=== PATIENT | male | born 1990 | race Caucasian/White ===

== ENCOUNTER 2020-02-05 17:33 | Inpatient (IN) | payer OTHER ==
[~2020-02-05] VITALS: Ht 160 cm; Wt 77.8 kg
--- NOTE | 2020-02-05 17:51 | NUR ---
PATIENT MEETS [facility]. CINA=[id number]. PATIENT WANTS TO FOLLOW UP WITH [facility] IN [place] FOR OUTPATIENT TREATMENT. MARÍA BARRON B.A. MEDICAID BILLING SPECIALIST
[2020-02-05 18:05] VITALS: BP 122/82
--- NOTE | 2020-02-05 18:05 | NUR ---
Time: 1804 A 29 year old FEMALE admitted to under services of JUDIE HELLER DO, Pt. arrived via stretcher from ER. Chief complaint: HERE FOR [facility]. HEROIN ABUSE STATES USES 1/2-1 GRAM DAILY SNORTING. ALSO ADMITS TO USING THC SMOKING DAILY KAZ DUMONT
--- NOTE | 2020-02-05 18:14 | NUR ---
Nursing supervisor broadloom notified that camera was needed for wound photo.
--- NOTE | 2020-02-05 18:20 | NUR ---
Dr. Aleman notifed that pt was in room.
--- NOTE | 2020-02-05 18:30 | NUR ---
Wound photos taken by Aidan Adorno.
--- NOTE | 2020-02-05 19:45 | NUR ---
PT IS SITTING UP IN BED AT THIS TIME. HE APPEARS RESTLESS AND STATES THAT HE IS HAVING A HARD TIME SITTING STILL WELL NEEDING THE NICOTINE INHALER. WILL CONTACT RESIDENT FOR ORDERS. BED IS LOW, CALL LIGHT WITHIN REACH. WILL CONTINUE TO MONITOR.
--- NOTE | 2020-02-05 19:50 | NUR ---
DR JANE CONTACTED REGARDING PT'S REQUEST FOR NICOTINE INHALER. ORDERS RECIEVED.
[2020-02-05 20:00] VITALS: BP 118/77
--- NOTE | 2020-02-05 20:29 | NUR ---
PT MEDICATED WITH PRN REQUIP FOR C/O RESTLESS LEG. WILL MONITOR FOR EFFECTIVENESS.
[2020-02-06] VITALS: BP 126/94
[2020-02-06 08:00] VITALS: BP 126/61
--- NOTE | 2020-02-06 08:33 | NUR ---
Dr. Aleman called and states that the labs ordered for pt were cancelled. Asked if pt refused or why were they cancelled. I spoke with Christel in the lab, who states pt refused and Lilly was notified. Notified Dr. Jacobo of this.
--- NOTE | 2020-02-06 10:03 | NUR ---
[place] STAFF IN TO SEE PATIENT. PATIENT IS STILL WANTING TO FOLLOW UP WITH [facility] IN [place] FOR OUTPATIENT TREATMENT. MARÍA BARRON B.A. HOPPER FEEDER
[2020-02-06 12:00] VITALS: BP 122/60
--- NOTE | 2020-02-06 12:08 | NUR ---
Nutritional Support Services Note: Pt with Dx of opiate withdrawal. Wounds/abrasions noted. Appetite is good for meals. Ht.5'3 Wt.172#. Continue to encourage good po intake of meals. Will provide pt with a night snack. No other nutrition intervention needed at this time. Will follow as needed. Hailey Briceño Rdn Ld
[2020-02-06 16:34] VITALS: BP 121/83
--- NOTE | 2020-02-06 20:00 | NUR ---
AMBULATING HALLWAY WITH MASK ON. NO DISTRESS NOTED. NO VOICED COMPLAINTS
--- NOTE | 2020-02-06 20:22 | NUR ---
24 HR chart check completed.
--- NOTE | 2020-02-06 20:56 | NUR ---
Patient displaying withdrawal symptoms, including: irritability, anxiousness, restlessness and agitation. Scheduled/PRN medications provided, SEE EMAR. Will continue to monitor medication effectiveness.
--- NOTE | 2020-02-06 21:30 | NUR ---
Patient resting. Responding to scheduled medications with fewer complaints of pain and anxiety.
[2020-02-07] VITALS: BP 109/64
--- NOTE | 2020-02-07 05:30 | NUR ---
Patient displaying withdrawal symptoms, including: irritability, anxiousness, restlessness and agitation. Scheduled medications provided, SEE EMAR. Will continue to monitor medication effectiveness.
--- NOTE | 2020-02-07 06:00 | NUR ---
Patient resting. Responding to scheduled medications with fewer complaints of pain and anxiety.
[2020-02-07 08:00] VITALS: BP 121/70
--- NOTE | 2020-02-07 11:12 | NUR ---
[facility] STAFF SET UP APPOINTMENT WITH [facility] IN [place] FOR January AT 9:30AM. MARÍA BARRON B.A. CORE DRILL OPERATOR
[2020-02-07 20:00] VITALS: BP 113/72
--- NOTE | 2020-02-07 20:45 | NUR ---
PT SITTING UP AT SIDE OF BED. RESP-EASY AND REGULAR. C/O CONSTIPATION, MEDICATED WITH MILK OF MAGNESIA. ALSO C/O MUSCLE ACHES, MEDICATED WITH ROBAXIN PO PER PRN ORDER, SEE EMAR. CALL LIGHT IN REACH.
--- NOTE | 2020-02-07 20:48 | NUR ---
PT REQUESTING NICOTROL CARTRIDGE, SEE EMAR.
--- NOTE | 2020-02-07 21:40 | NUR ---
Patient resting. Responding to scheduled medications with fewer complaints of pain and anxiety. CALL LIGHT IN REACH.
[2020-02-08] VITALS: BP 131/75
--- NOTE | 2020-02-08 00:06 | NUR ---
PT AMBULATORY IN THE ROOM. TOLERATED ROUTINE SUBUTEX FOR WITHDRAWAL. PT ANXIOUS. MEDICATED WITH VISTARIL PO PER PRN ORDER, SEE EMAR. CALL LIGHT IN REACH.
--- NOTE | 2020-02-08 01:00 | NUR ---
Patient resting. Responding to scheduled medications with fewer complaints of pain and anxiety. CALL LIGHT IN [facility].
--- NOTE | 2020-02-08 06:00 | NUR ---
RESTING IN BED. RESP-EASY AND REGULAR. TOLERATED ROUTINE MED WITH NO PROBLEM. CALL LIGHT IN REACH.
[2020-02-08 08:00] VITALS: BP 91/55
--- NOTE | 2020-02-08 08:00 | NUR ---
Patient resting quietly with no c/o discomfort. Respirations easy and regular. Vital signs stable. No overt distress. JOHN LARES R
[2020-02-08] MEDS ORDERED: ATARAX,VISTARIL50 MG PO (11:13)
[2020-02-08] MEDS ORDERED: ROPINIROLE HYD0.5 MG PO (11:13)
--- NOTE | 2020-02-08 12:26 | NUR ---
PT REFUSES DISCHARGE WOUND PHOTOS.
--- NOTE | 2020-02-08 13:47 | NUR ---
Discharge instructions reviewed with patient/family. Patient receptive and verbalizes understanding. Follow-up care arranged. Written instructions given to patient/family. JOHN LARES
== END 2020-02-08 13:47 | disposition home or self-care (01) | DRG 773 ==
LOC: 4E 17:33
PROVIDERS: ADMIT Internal Medicine; ATTEND Internal Medicine
DX: F11.23 Opioid dependence with withdrawal (principal); F14.10 Cocaine abuse, uncomplicated; F31.9 Bipolar disorder, unspecified; F12.10 Cannabis abuse, uncomplicated; F17.210 Nicotine dependence, cigarettes, uncomplicated; F41.9 Anxiety disorder, unspecified; F11.282 Opioid dependence with opioid-induced sleep disorder; G25.81 Restless legs syndrome; H53.8 Other visual disturbances; Z82.5 Family history of asthma and other chronic lower respiratory diseases

== ENCOUNTER 2021-02-24 00:59 | Emergency (ER) | payer OTHER ==
[~2021-02-24 00:59] MED LIST: ATARAX,VISTARIL50 MG PO; ROPINIROLE HYD0.5 MG PO
[2021-02-24 02:31] LABS: URINE AMPHETAMINES < 1000 (1000ng/ml); URINE BARBITURATES < 200 (200ng/ml); URINE BENZODIAZEPINES < 200 (200ng/ml); URINE CANNABINOIDS (THC) < 50 (50ng/ml); URINE COCAINE < 300 (300ng/ml); URINE METHADONE < 300 (300ng/ml); URINE OPIATES < 300 (300ng/ml)
[2021-02-24 02:32] LABS: URINE PHENCYCLIDINE < 25 (25ng/ml)
== END 2021-02-24 02:53 | disposition home or self-care (01) ==
LOC: ED 00:59
PROVIDERS: Internal Medicine
DX: Z00.00 Encounter for general adult medical examination without abnormal findings (principal); F17.200 Nicotine dependence, unspecified, uncomplicated

== ENCOUNTER 2021-09-04 14:30 | Emergency (ER) | payer OTHER ==
[~2021-09-04] VITALS: Ht 162.5 cm; Wt 79.4 kg
[2021-09-04] MEDS ORDERED: BUPRENORPHINE-1 EAC2 SL (15:06)
== END 2021-09-04 16:31 | disposition home or self-care (01) ==
LOC: ED 14:30
DX: F11.21 Opioid dependence, in remission (principal); F17.210 Nicotine dependence, cigarettes, uncomplicated; Z79.899 Other long term (current) drug therapy; Z98.890 Other specified postprocedural states

== ENCOUNTER 2021-09-08 10:12 | Emergency (ER) | payer OTHER ==
[~2021-09-08 10:12] MED LIST changes: +BUPRENORPHINE-1 EAC2 SL
== END 2021-09-08 10:40 | disposition home or self-care (01) ==
LOC: ED 10:12
DX: F11.90 Opioid use, unspecified, uncomplicated (principal)

== ENCOUNTER 2021-11-08 14:18 | Inpatient (IN) | payer OTHER ==
[~2021-11-08] VITALS: Wt 83.9 kg
[2021-11-08 14:37] VITALS: BP 105/69
[2021-11-08 15:45] LABS: BASO # 0.1 10*3/uL (0.0-0.1); BASO % 0.5 % (0.0-1.0); EOS # 0.2 10*3/uL (0.0-0.4); EOS % 1.6 % (1.0-4.0); HEMATOCRIT 39.9 % (42.0-52.0); LYMPH # 1.6 10*3/uL (1.3-4.4); LYMPH % 14.8 % (27.0-41.0); MEAN CELL VOLUME 92.4 fl (80.0-94.0); MEAN CORPUSCULAR HGB 31.5 pg (27.0-31.0); MEAN CORPUSCULAR HGB CONC 34.1 g/dl (33.0-37.0); MEAN PLATELET VOLUME 10.2 fl (9.6-12.3); MONO # 0.8 10*3/uL (0.1-1.0); MONO % 7.2 % (3.0-9.0); NEUT # 7.9 10*3/uL (2.3-7.9); NEUT % 75.5 % (47.0-73.0); PLATELET COUNT AUTOMATED 211 10*3/uL (130-400); RED BLOOD COUNT 4.32 10*6/uL (4.50-5.90); RED CELL DISTRI WIDTH 14.9 % (0-14.5); WHITE BLOOD COUNT 10.5 10*3/uL (4.8-10.8)
[2021-11-08 15:56] LABS: ACT PARTIAL THROMBO TIME 24.2 SECONDS (20.0-32.1); INTERNATIONAL NORM RATIO 0.9 (2.0-3.5)
[2021-11-08 16:01] LABS: ALKALINE PHOSPHATASE 88 U/L (45-117); BUN 13 mg/dl (7-24); CHLORIDE 108 mmol/L (98-107); CREATININE 0.73 mg/dL (0.70-1.30); LIPASE 71 U/L (73-393); SGOT/AST 13 IU/L (3-35); SGPT/ALT 21 U/L (12-78); SODIUM 138 mmol/L (136-145); TOTAL PROTEIN 7.1 gm/dL (6.4-8.2)
[2021-11-08 16:02] LABS: ETHYL ALCOHOL < 3.0 mg/dl (<3)
[2021-11-08 18:34] VITALS: BP 112/46
== END 2021-11-08 22:35 | disposition left against medical advice (07) | DRG 770 ==
LOC: ED 14:18 → EDHOLD 16:48
PROVIDERS: Emergency Medicine; ADMIT Internal Medicine; ATTEND Internal Medicine
DX: F11.23 Opioid dependence with withdrawal (principal); R73.9 Hyperglycemia, unspecified; D64.9 Anemia, unspecified; F12.10 Cannabis abuse, uncomplicated; F17.219 Nicotine dependence, cigarettes, with unspecified nicotine-induced disorders; G47.00 Insomnia, unspecified; Z83.6 Family history of other diseases of the respiratory system; Z83.3 Family history of diabetes mellitus; Z80.9 Family history of malignant neoplasm, unspecified; Z79.899 Other long term (current) drug therapy

== ENCOUNTER 2021-11-13 15:14 | Emergency (ER) | payer OTHER ==
[~2021-11-13] VITALS: Ht 162.5 cm; Wt 83.9 kg
[2021-11-13 16:03] LABS: BILIRUBIN Negative (Negative); BLOOD Negative (Negative); CLARITY Clear (Clear); COLOR Yellow (Yellow); GLUCOSE Negative (Negative); KETONE Trace (Negative); LEUKO ESTERASE Negative (Negative); NITRITE Negative (Negative)
[2021-11-13 16:12] LABS: URINE AMPHETAMINES < 1000 (1000ng/ml); URINE BARBITURATES < 200 (200ng/ml); URINE BENZODIAZEPINES > 200 (200ng/ml); URINE CANNABINOIDS (THC) > 50 (50ng/ml); URINE COCAINE < 300 (300ng/ml); URINE METHADONE < 300 (300ng/ml); URINE OPIATES < 300 (300ng/ml)
[2021-11-13 16:14] LABS: URINE PHENCYCLIDINE < 25 (25ng/ml)
[2021-11-13 16:16] LABS: BASO % 0.4 % (0.0-1.0); EOS # 0.2 10*3/uL (0.0-0.4); EOS % 2.6 % (1.0-4.0); LYMPH # 1.5 10*3/uL (1.3-4.4); LYMPH % 16.9 % (27.0-41.0); MEAN CELL VOLUME 90.9 fl (80.0-94.0); MEAN CORPUSCULAR HGB 31.1 pg (27.0-31.0); MEAN CORPUSCULAR HGB CONC 34.2 g/dl (33.0-37.0); MEAN PLATELET VOLUME 9.7 fl (9.6-12.3); MONO # 0.7 10*3/uL (0.1-1.0); MONO % 7.6 % (3.0-9.0); NEUT # 6.5 10*3/uL (2.3-7.9); NEUT % 72.1 % (47.0-73.0); PLATELET COUNT AUTOMATED 214 10*3/uL (130-400); RED BLOOD COUNT 4.95 10*6/uL (4.50-5.90); RED CELL DISTRI WIDTH 14.1 % (0-14.5)
[2021-11-13 16:20] LABS: EPITHELIAL CELLS 0-2; MUCOUS 2+; WBC 0-2 wbc/hpf (0-5)
[2021-11-13 16:31] LABS: ALKALINE PHOSPHATASE 93 U/L (45-117); BUN 5 mg/dl (7-24); CHLORIDE 109 mmol/L (98-107); CREATININE 0.73 mg/dL (0.70-1.30); POTASSIUM 3.7 mmol/L (3.5-5.1); SGOT/AST 14 IU/L (3-35); SGPT/ALT 17 U/L (12-78); SODIUM 137 mmol/L (136-145); TOTAL PROTEIN 7.7 gm/dL (6.4-8.2)
[2021-11-13 16:32] LABS: ACETAMINOPHEN (TYLENOL) < 5.0 ug/ml (10-30)
[2021-11-13 16:45] LABS: ETHYL ALCOHOL < 3.0 mg/dl (<3)
== END 2021-11-13 16:40 | disposition left against medical advice (07) ==
LOC: ED 15:14
PROVIDERS: Emergency Medicine
DX: F11.23 Opioid dependence with withdrawal (principal); Z87.891 Personal history of nicotine dependence; Z98.890 Other specified postprocedural states

== ENCOUNTER 2022-01-21 19:20 | Emergency (ER) | payer OTHER ==
[~2022-01-21] VITALS: Ht 160 cm; Wt 83.9 kg
[2022-01-21] MEDS ORDERED: ESCITALOPRAM OX10 MG PO (20:05)
[2022-01-21] MEDS ORDERED: ARIPIPRAZOLE10 MG PO (20:06)
[2022-01-21] MEDS ORDERED: LEXAPRO10 MG PO (20:10)
[2022-01-21] MEDS ORDERED: ABILIFY10 MG PO (20:10)
== END 2022-01-21 20:59 | disposition home or self-care (01) ==
LOC: ED 19:20
DX: F41.9 Anxiety disorder, unspecified (principal); Z76.0 Encounter for issue of repeat prescription; Z98.890 Other specified postprocedural states; Z87.891 Personal history of nicotine dependence

== ENCOUNTER 2022-09-15 17:19 | Inpatient (IN) | payer OTHER ==
[~2022-09-15] VITALS: Ht 160 cm; Wt 84.0 kg
[~2022-09-15 17:19] MED LIST changes: +ABILIFY10 MG PO; +ARIPIPRAZOLE10 MG PO; +ESCITALOPRAM OX10 MG PO; +LEXAPRO10 MG PO
[2022-09-15 18:01] VITALS: BP 136/72
[2022-09-15 18:26] LABS: BASO # 0.1 10*3/uL (0.0-0.1); BASO % 0.8 % (0.0-1.0); EOS # 0.4 10*3/uL (0.0-0.4); EOS % 5.5 % (1.0-4.0); LYMPH # 2.7 10*3/uL (1.3-4.4); LYMPH % 35.2 % (27.0-41.0); MEAN CELL VOLUME 89.2 fl (80.0-94.0); MEAN CORPUSCULAR HGB 31.5 pg (27.0-31.0); MEAN CORPUSCULAR HGB CONC 35.3 g/dl (33.0-37.0); MONO # 0.6 10*3/uL (0.1-1.0); MONO % 7.5 % (3.0-9.0); NEUT # 3.9 10*3/uL (2.3-7.9); NEUT % 50.7 % (47.0-73.0); PLATELET COUNT AUTOMATED 218 10*3/uL (130-400); RED BLOOD COUNT 4.82 10*6/uL (4.50-5.90); RED CELL DISTRI WIDTH 13.3 % (0-14.5); WHITE BLOOD COUNT 7.6 10*3/uL (4.8-10.8)
[2022-09-15] MEDS ORDERED: BUSPIRONE15 MG PO (18:39)
[2022-09-15] MEDS ORDERED: ABILIFY15 MG PO (18:39)
[2022-09-15] MEDS ORDERED: VISTARIL25 MG PO (18:40)
[2022-09-15] MEDS ORDERED: SEPTDS PO (18:40)
[2022-09-15 19:00] LABS: ALKALINE PHOSPHATASE 79 U/L (46-116); BUN 11 mg/dl (9-23); CHLORIDE 101 mmol/L (98-107); POTASSIUM 3.7 mmol/L (3.4-5.1); SGPT/ALT 34 U/L (10-49); TOTAL PROTEIN 7.6 gm/dL (6.0-8.0)
[2022-09-15 19:07] LABS: ETHYL ALCOHOL < 3.0 mg/dl (<3)
[2022-09-15 20:54] VITALS: BP 115/62
[2022-09-15 21:31] LABS: URINE AMPHETAMINES Positive (1000ng/ml); URINE BARBITURATES Negative (200ng/ml); URINE BENZODIAZEPINES Positive (200ng/ml); URINE CANNABINOIDS (THC) Positive (50ng/ml); URINE COCAINE Negative (300ng/ml); URINE METHADONE Negative (300ng/ml); URINE OPIATES Positive (300ng/ml); URINE PHENCYCLIDINE Negative (25ng/ml)
[2022-09-15 22:26] VITALS: BP 99/50
[2022-09-16] VITALS (7 sets, daily range): BP systolic 78–128; BP diastolic 30–70
[2022-09-16 03:51] LABS: BASO # 0.1 10*3/uL (0.0-0.1); BASO % 0.7 % (0.0-1.0); EOS # 0.4 10*3/uL (0.0-0.4); HEMATOCRIT 39.1 % (42.0-52.0); LYMPH # 2.7 10*3/uL (1.3-4.4); LYMPH % 40.7 % (27.0-41.0); MEAN CELL VOLUME 89.9 fl (80.0-94.0); MEAN CORPUSCULAR HGB 30.8 pg (27.0-31.0); MEAN CORPUSCULAR HGB CONC 34.3 g/dl (33.0-37.0); MEAN PLATELET VOLUME 9.8 fl (9.6-12.3); MONO # 0.8 10*3/uL (0.1-1.0); MONO % 11.4 % (3.0-9.0); NEUT # 2.7 10*3/uL (2.3-7.9); NEUT % 40.8 % (47.0-73.0); PLATELET COUNT AUTOMATED 190 10*3/uL (130-400); RED BLOOD COUNT 4.35 10*6/uL (4.50-5.90); RED CELL DISTRI WIDTH 13.4 % (0-14.5); WHITE BLOOD COUNT 6.7 10*3/uL (4.8-10.8)
[2022-09-16 04:04] LABS: ACT PARTIAL THROMBO TIME 26.7 SECONDS (20.0-32.1)
[2022-09-16 06:32] LABS: ALKALINE PHOSPHATASE 65 U/L (46-116); BUN 15 mg/dl (9-23); CHLORIDE 106 mmol/L (98-107); CHOLESTEROL 128 mg/dL (<200); FREE T4 1.21 ng/dl (0.89-1.76); LDL CHOLESTEROL 69 mg/dL (9-159); POTASSIUM 4.4 mmol/L (3.4-5.1); SGPT/ALT 28 U/L (10-49); THYROID STIM HORMONE (HS) 1.159 uIU/ml (0.550-4.780); TOTAL PROTEIN 6.4 gm/dL (6.0-8.0); TRIGLYCERIDES 56 mg/dl (<150)
[2022-09-17] VITALS: BP 98/50
[2022-09-17 08:00] VITALS: BP 110/55
== END 2022-09-17 09:21 | disposition left against medical advice (07) | DRG 770 ==
LOC: ED 17:19 → EDHOLD 18:41 → 4E 09-16 13:46
PROVIDERS: Emergency Medicine; Student in an Organized Health Care Education/Training Program; ADMIT Family Medicine; ATTEND Family Medicine
DX: F11.23 Opioid dependence with withdrawal (principal); F41.9 Anxiety disorder, unspecified; R74.01 Elevation of levels of liver transaminase levels; F15.10 Other stimulant abuse, uncomplicated; F13.10 Sedative, hypnotic or anxiolytic abuse, uncomplicated; K59.00 Constipation, unspecified; F31.81 Bipolar II disorder; Z53.29 Procedure and treatment not carried out because of patient's decision for other reasons; F17.210 Nicotine dependence, cigarettes, uncomplicated; Z79.899 Other long term (current) drug therapy; Z82.5 Family history of asthma and other chronic lower respiratory diseases

== ENCOUNTER 2024-04-19 19:10 | Emergency (ER) | payer SELFPAY ==
[~2024-04-19] VITALS: Ht 160 cm; Wt 113.4 kg
[~2024-04-19 19:10] MED LIST changes: +ABILIFY15 MG PO; +BUSPIRONE15 MG PO; +SEPTDS PO; +VISTARIL25 MG PO
[2024-04-19] MEDS ORDERED: BENZONATATE100 M1 PO (21:38)
== END 2024-04-19 21:41 | disposition home or self-care (01) ==
LOC: ED 19:10
DX: J40 Bronchitis, not specified as acute or chronic (principal); F31.9 Bipolar disorder, unspecified; F12.10 Cannabis abuse, uncomplicated; F15.10 Other stimulant abuse, uncomplicated; F11.10 Opioid abuse, uncomplicated; F19.10 Other psychoactive substance abuse, uncomplicated; F17.210 Nicotine dependence, cigarettes, uncomplicated; Z98.890 Other specified postprocedural states

== ENCOUNTER 2024-10-22 01:56 | Emergency (ER) | payer OTHER ==
[~2024-10-22] VITALS: Ht 160 cm; Wt 97.5 kg
[~2024-10-22 01:56] MED LIST changes: +BENZONATATE100 M1 PO
[2024-10-22 02:37] LABS: BASO # 0.0 10*3/uL (0.0-0.1); BASO % 0.4 % (0.0-1.0); EOS # 0.4 10*3/uL (0.0-0.4); EOS % 3.4 % (1.0-4.0); MEAN CELL VOLUME 86.8 fl (80.0-94.0); MEAN CORPUSCULAR HGB 30.9 pg (27.0-31.0); MEAN PLATELET VOLUME 10.8 fl (9.6-12.3); MONO # 0.9 10*3/uL (0.1-1.0); MONO % 8.5 % (3.0-9.0); NEUT # 6.4 10*3/uL (2.3-7.9); NEUT % 61.6 % (47.0-73.0); NUCLEATED RED BLOOD CELL 0.0 % (0.0-0.0); NUCLEATED RED BLOOD CELL 0.0 10*3/uL (0.0-0.0); PLATELET COUNT AUTOMATED 201 10*3/uL (130-400); RED CELL DISTRI WIDTH 12.9 % (0-14.5)
[2024-10-22] MEDS ORDERED: Sulfamethoxazole/Trimethopri 1 TAB TAB PO ONE (02:40)
[2024-10-22] MEDS ORDERED: Bacitracin Zinc 14 GM TUBE T ONE (02:40)
[2024-10-22] MEDS ORDERED: SEPTDS PO (02:53)
== END 2024-10-22 03:13 | disposition home or self-care (01) ==
LOC: ED 01:56
PROVIDERS: Internal Medicine
DX: S21.209A Unspecified open wound of unspecified back wall of thorax without penetration into thoracic cavity, initial encounter (principal); F31.9 Bipolar disorder, unspecified; F11.10 Opioid abuse, uncomplicated; F12.10 Cannabis abuse, uncomplicated; F17.200 Nicotine dependence, unspecified, uncomplicated; Z79.899 Other long term (current) drug therapy; Z98.890 Other specified postprocedural states; X58.XXXA Exposure to other specified factors, initial encounter; Y93.89 Activity, other specified; Y92.89 Other specified places as the place of occurrence of the external cause; Y99.8 Other external cause status

== ENCOUNTER 2024-12-30 18:11 | Emergency (ER) | payer OTHER ==
[2024-12-30] MEDS ORDERED: LORazepam 1 MG TAB PO ONE (18:30)
[2024-12-30 18:42] LABS: BASO # 0.1 10*3/uL (0.0-0.1); BASO % 0.6 % (0.0-1.0); EOS # 0.2 10*3/uL (0.0-0.4); EOS % 2.4 % (1.0-4.0); MEAN CELL VOLUME 87.6 fl (80.0-94.0); MEAN CORPUSCULAR HGB 31.1 pg (27.0-31.0); MEAN PLATELET VOLUME 10.9 fl (9.6-12.3); MONO # 0.7 10*3/uL (0.1-1.0); MONO % 7.5 % (3.0-9.0); NEUT # 6.3 10*3/uL (2.3-7.9); NEUT % 64.9 % (47.0-73.0); NUCLEATED RED BLOOD CELL 0.0 % (0.0-0.0); NUCLEATED RED BLOOD CELL 0.0 10*3/uL (0.0-0.0); PLATELET COUNT AUTOMATED 186 10*3/uL (130-400); RED CELL DISTRI WIDTH 13.2 % (0-14.5)
[2024-12-30 19:04] LABS: BUN 6 mg/dl (9-23); CPK 282 U/L (34-171)
[2024-12-30 19:05] LABS: ETHYL ALCOHOL < 3.0 mg/dl (<3)
[2024-12-30 19:18] LABS: URINE AMPHETAMINES Negative (1000ng/ml); URINE BARBITURATES Negative (200ng/ml); URINE BENZODIAZEPINES Negative (200ng/ml); URINE CANNABINOIDS (THC) Positive (50ng/ml); URINE COCAINE Negative (300ng/ml); URINE METHADONE Negative (300ng/ml); URINE OPIATES Negative (300ng/ml); URINE PHENCYCLIDINE Negative (25ng/ml)
[2024-12-30] MEDS ORDERED: SODIUM CHLORIDE 0.9% 1,000 ML IV ONE (19:45)
[2024-12-30] MEDS ORDERED: POTASSIUM CHLORIDE 20 MEQ TAB PO ONE (19:45)
== END 2024-12-30 22:57 | disposition home or self-care (01) ==
LOC: ED 18:11
PROVIDERS: Nurse Practitioner Family
DX: F41.1 Generalized anxiety disorder (principal); E87.6 Hypokalemia; E66.9 Obesity, unspecified; F31.81 Bipolar II disorder; F20.9 Schizophrenia, unspecified; Z98.890 Other specified postprocedural states; Z68.30 Body mass index [BMI] 30.0-30.9, adult

== ENCOUNTER 2025-01-09 04:12 | Emergency (ER) | payer OTHER ==
[~2025-01-09] VITALS: Wt 85.8 kg
[2025-01-09 04:35] LABS: BASO # 0.0 10*3/uL (0.0-0.1); BASO % 0.3 % (0.0-1.0); EOS # 0.1 10*3/uL (0.0-0.4); EOS % 1.0 % (1.0-4.0); MEAN CELL VOLUME 87.5 fl (80.0-94.0); MEAN CORPUSCULAR HGB 31.1 pg (27.0-31.0); MEAN PLATELET VOLUME 10.5 fl (9.6-12.3); MONO # 1.0 10*3/uL (0.1-1.0); MONO % 8.9 % (3.0-9.0); NEUT # 8.4 10*3/uL (2.3-7.9); NEUT % 71.6 % (47.0-73.0); NUCLEATED RED BLOOD CELL 0.0 % (0.0-0.0); NUCLEATED RED BLOOD CELL 0.0 10*3/uL (0.0-0.0); PLATELET COUNT AUTOMATED 227 10*3/uL (130-400); RED CELL DISTRI WIDTH 13.4 % (0-14.5)
[2025-01-09 04:59] LABS: BUN 12 mg/dl (9-23); CPK 377 U/L (34-171)
[2025-01-09 05:16] LABS: BILIRUBIN Negative (Negative); BLOOD Negative (Negative); CLARITY Cloudy (Clear); COLOR Dark Yellow (Yellow); KETONE 2+ (Negative); LEUKO ESTERASE Trace (Negative); NITRITE Negative (Negative); PH 6.0 (4.5-8.0); SPECIFIC GRAVITY >= 1.030 (1.001-1.030); UROBILINOGEN 1.0 E.U./dl (0.0-1.0)
[2025-01-09 05:24] LABS: URINE AMPHETAMINES Negative (1000ng/ml); URINE BARBITURATES Negative (200ng/ml); URINE BENZODIAZEPINES Negative (200ng/ml); URINE CANNABINOIDS (THC) Positive (50ng/ml); URINE COCAINE Negative (300ng/ml); URINE METHADONE Negative (300ng/ml); URINE OPIATES Negative (300ng/ml); URINE PHENCYCLIDINE Negative (25ng/ml)
[2025-01-09 05:30] LABS: BACTERIA 1+; MUCOUS 3+
[2025-01-09 05:31] LABS: ETHYL ALCOHOL < 3.0 mg/dl (<3)
== END 2025-01-09 06:23 | disposition left against medical advice (07) ==
LOC: ED 04:12
PROVIDERS: Internal Medicine
DX: R74.8 Abnormal levels of other serum enzymes (principal); E87.6 Hypokalemia; R41.82 Altered mental status, unspecified; F17.200 Nicotine dependence, unspecified, uncomplicated; Z79.899 Other long term (current) drug therapy; Z98.890 Other specified postprocedural states; Z53.21 Procedure and treatment not carried out due to patient leaving prior to being seen by health care provider

== ENCOUNTER 2025-04-11 14:50 | Emergency (ER) | payer OTHER ==
[~2025-04-11] VITALS: Ht 160 cm; Wt 93.0 kg
[2025-04-11] MEDS ORDERED: ABILIFY MAINTE400 M1 IM (15:02)
[2025-04-11] MEDS ORDERED: HYDROXYZINE PAM25 M1 PO (15:02)
[2025-04-11 17:35] LABS: BASO # 0.1 10*3/uL (0.0-0.1); BASO % 0.5 % (0.0-1.0); EOS # 0.4 10*3/uL (0.0-0.4); EOS % 3.6 % (1.0-4.0); MEAN CELL VOLUME 91.7 fl (80.0-94.0); MEAN CORPUSCULAR HGB 30.7 pg (27.0-31.0); MEAN PLATELET VOLUME 10.1 fl (9.6-12.3); MONO # 0.8 10*3/uL (0.1-1.0); MONO % 7.0 % (3.0-9.0); NEUT # 7.4 10*3/uL (2.3-7.9); NEUT % 67.7 % (47.0-73.0); NUCLEATED RED BLOOD CELL 0.0 % (0.0-0.0); NUCLEATED RED BLOOD CELL 0.0 10*3/uL (0.0-0.0); PLATELET COUNT AUTOMATED 247 10*3/uL (130-400); RED CELL DISTRI WIDTH 12.6 % (0-14.5)
[2025-04-11 17:57] LABS: BUN 7 mg/dl (9-23); SGPT/ALT 39 U/L (5-49)
[2025-04-11] MEDS ORDERED: VIBRAMYCIN100 MG PO (18:05)
[2025-04-11] MEDS ORDERED: Bactroban Oint22 GM T (18:05)
== END 2025-04-11 18:24 | disposition home or self-care (01) ==
LOC: ED 14:50
PROVIDERS: Nurse Practitioner Family
DX: Z48.00 Encounter for change or removal of nonsurgical wound dressing (principal); F31.9 Bipolar disorder, unspecified; Z98.890 Other specified postprocedural states